=== PATIENT | female | born 1960 | race African-American/Black ===

== ENCOUNTER 2023-10-31 10:40 | Inpatient (IN) | payer OTHER ==
[2023-10-31 11:18] VITALS: BMI 16.9
[2023-10-31] MEDS ORDERED: MAG HYDROX/AL HYDROX/SIMETH 30 ML UNIT-DOSE CUP PO PRN (12:01)
[2023-10-31] MEDS ORDERED: BISMUTH SUBSALICYLATE 524 MG/30 ML PO PRN (12:01)
[2023-10-31] MEDS ORDERED: BENZONATATE 200 MG CAPSULE PO PRN (12:01)
[2023-10-31] MEDS ORDERED: DICYCLOMINE HCL 10 MG CAPSULE PO PRN (12:01)
[2023-10-31] MEDS ORDERED: guaiFENesin 600 MG TABLET.ER (FP) PO PRN (12:01)
[2023-10-31] MEDS ORDERED: ONDANSETRON *ODT* 4 MG TABLET SL PRN (12:01)
[2023-10-31] MEDS ORDERED: IBUPROFEN 600 MG TABLET (FP) PO PRN (12:01)
[2023-10-31] MEDS ORDERED: MAGNESIUM HYDROX 2400MG/30ML ORAL SUSPENSION 30 ML CUP PO PRN (12:01)
[2023-10-31] MEDS ORDERED: LOPERAMIDE HCL 2 MG CAPSULE PO PRN (12:01)
[2023-10-31] MEDS ORDERED: BENZOCAINE/MENTHOL (CHLORASEPTIC ) LOZENGE MM PRN (12:01)
[2023-10-31] MEDS ORDERED: IBUPROFEN 400 MG TABLET (FP) PO PRN (12:01)
[2023-10-31] MEDS ORDERED: ACETAMINOPHEN 325 MG TABLET (FP) PO PRN (12:01)
[2023-10-31] MEDS ORDERED: POLYETHYLENE GLYCOL (HEALTHYLAX) 3350 17 GM PACKET PO PRN (12:01)
[2023-10-31] MEDS: METOPROLOL TARTRATE 25 MG TABLET (FP) PO ONE (12:47)
[2023-10-31] MEDS ORDERED: METOPROLOL TARTRATE 25 MG TABLET (FP) ONE (12:52)
[2023-10-31] MEDS: MELATONIN 5 MG TABLETS PO SCH (22:21)
[2023-10-31] MEDS: THIAMINE HCL 100 MG TABLET (FP) PO SCH (22:23)
[2023-11-01] MEDS ORDERED: LORazepam 1 MG TABLET PO PRN (09:29)
[2023-11-01] MEDS ORDERED: METOPROLOL TARTRATE 50 MG TABLET (FP) PO SCH (10:00)
[2023-11-01] MEDS: METOPROLOL TARTRATE 25 MG TABLET (FP) PO SCH (10:20)
[2023-11-01] MEDS: PRENATAL VITAMINS W/ FOLIC ACID TABLET (FP) PO SCH (10:20)
[2023-11-01] MEDS ORDERED: LORazepam 2 MG TABLET PO SCH (11:00)
[2023-11-01] MEDS: LORazepam 1 MG TABLET PO SCH (11:06)
[2023-11-01 12:21] LABS: HEMATOCRIT 40.4 % (32.4-45.2); HEMOGLOBIN 14.2 GM/dL (10.7-15.3); MCH 33.7 pg (25.7-33.7); MCHC 35.1 g/dl (32.0-36.0); MEAN CELL VOLUME 96.1 fl (80-96); MEAN PLT VOLUME 10.8 fl (7.5-11.1); PLATELET COUNT 230 10^3/uL (134-434); RBC 4.21 M/mm3 (3.60-5.2); RDW 12.5 % (11.6-15.6); WHITE BLOOD COUNT 7.5 K/mm3 (4.0-10.0)
[2023-11-01 12:45] LABS: POTASSIUM 3.5 mmol/L (3.5-5.1)
[2023-11-01 13:03] LABS: ALBUMIN 3.7 g/dl (3.4-5.0); BLOOD UREA NITROGEN 21.4 mg/dL (7-18); CALCIUM 10.2 mg/dL (8.5-10.1)
[2023-11-01 13:06] LABS: CREATININE 0.6 mg/dL (0.55-1.3)
[2023-11-01 13:08] LABS: BILIRUBIN,TOTAL 0.6 mg/dL (0.2-1); TOT PROT 7.6 g/dl (6.4-8.2)
[2023-11-02] MEDS: LORazepam 1 MG TABLET PO SCH (06:00)
[2023-11-02 18:13] VITALS: BP 149/90; PULSE 65; RESP 16; TEMP 98.9
[2023-11-03] MEDS ORDERED: LORazepam 0.5 MG TABLET PO SCH (05:00)
[2023-11-04] MEDS ORDERED: LORazepam 0.5 MG TABLET PO ONE (05:00)
== END 2023-11-02 19:55 | disposition left against medical advice (07) | DRG 770 ==
LOC: YASAS 10:40 → Y6N 13:06
PROVIDERS: ADMIT Allergy & Immunology; ATTEND Surgery
PROC: HZ2ZZZZ Detoxification Services for Substance Abuse Treatment (ICD-10-PCS; principal; 2023-10-31)
DX: F10.230 Alcohol dependence with withdrawal, uncomplicated (principal); F14.20 Cocaine dependence, uncomplicated; F12.20 Cannabis dependence, uncomplicated; F17.210 Nicotine dependence, cigarettes, uncomplicated; F19.282 Other psychoactive substance dependence with psychoactive substance-induced sleep disorder; I10 Essential (primary) hypertension; Z28.310 Unvaccinated for COVID-19; Z28.9 Immunization not carried out for unspecified reason
CPT/HCPCS: 36415; 80053; 80307; 85027; 86780; 93005; 93010